=== PATIENT | female | born 1990 ===

== ENCOUNTER 2017-10-21 14:50 | Emergency (ER) | payer BC ==
--- NOTE | 2017-10-21 15:16 | UC ---
Back Pain HPI - History of Current Complaint Stated Complaint: LOWER BACK PAIN Time Seen by Provider: 10/21/17 15:15 Discharge - Discharge Plan Condition: Stable Disposition: HOME Referrals: No Primary Care Phys,NOPCP [Primary Care Provider] -
[2017-10-21 15:17] VITALS: BP 114/68
--- NOTE | 2017-10-21 15:44 | UC ---
Back Pain HPI - HPI Summary HPI Summary: Patient presents with non-traumatic left sided lower back pain x 2 days. She states the pain has been intermittent, and at times will radiate to the felt flank and side. She cannot states anything factors that make her back pain worse , and she states that Advil, and Tylenol make it a little better. She denies any fever, chills, abdominal pain , nausea, vomiting, diarrhea, abnormal vaginal discharge or bleeding. She denies any new activity, injury or trauma. Denies incontinence of bowel or bladder, or saddle paresthesia. - History of Current Complaint Chief Complaint: UCBackPain Stated Complaint: LOWER BACK PAIN Time Seen by Provider: 10/21/17 15:15 Hx Obtained From: Patient Hx Last Menstrual Period: Sep 19 ?: No Onset/Duration: Sudden Onset, Lasting Days Timing: Intermittent, Lasting Hours Severity Initially: Moderate Severity Currently: Moderate Back Pain: Is Discrete @ - left flank, lower back. Character: Sharp Aggravating Factor(s): Nothing Alleviating Factor(s): OTC Meds Associated Signs And Symptoms: Positive: Negative - Risk Factors AAA Risk Factors: Negative Cauda Equina Risk Factors: Negative Epidural Abscess Risk Factors: Negative - Allergies/Home Medications Allergies/Adverse Reactions: Allergies Allergy/AdvReac Type Severity Reaction Status Date / Time Minocycline Allergy Nausea Verified 10/21/17 15:19 Home Medications: Home Medications Keppra 250 1 tab PO DAILY 10/21/17 [History Confirmed 10/21/17] Keppra 500 1 tab PO BEDTIME 10/21/17 [History Confirmed 10/21/17] Pantoprazole Sodium 1 tab PO DAILY 10/21/17 [History Confirmed 10/21/17] Psyllium CARLIE* [Metamucil CARLIE*] 1 pkt PO DAILY 10/21/17 [History Confirmed ] PMH/Surg Hx/FS Hx/Imm Hx Previously Healthy: Yes Neurological History: Seizures - Surgical History Surgical History: Yes Surgery Procedure, Year, and Place: Sep 19, D&C - Family History Known Family History: Positive: None - Social History Occupation: Employed Full-time Lives: Alone Alcohol Use: None Substance Use Type: None Smoking Status (MU): Never Smoked Tobacco Review of Systems Constitutional: Negative Skin: Negative Eyes: Negative ENT: Negative Respiratory: Negative Cardiovascular: Negative Gastrointestinal: Negative Genitourinary: Negative Motor: Negative Neurovascular: Negative Musculoskeletal: Myalgia Neurological: Negative Psychological: Negative Is Patient Immunocompromised?: No All Other Systems Reviewed And Are Negative: Yes Physical Exam Triage Information Reviewed: Yes Appearance: Well-Appearing Vital Signs: Initial Vital Signs Temp 100.6 F 10/21/17 15:10 Pulse 126 10/21/17 15:10 Resp 15 10/21/17 15:10 BP 114/68 10/21/17 15:10 Pulse Ox 100 10/21/17 15:10 Vital Signs Reviewed: Yes Eye Exam: Normal ENT Exam: Normal Neck exam: Normal Neck: Positive: 1 Respiratory Exam: Normal Cardiovascular Exam: Normal Abdominal Exam: Normal Musculoskeletal: Positive: Other: - back inspecion, vertebra are in good aligment without step-offs or deformities, No areas of eccymosis, erythma, or edema. Palpation, no tenderness of midline on palpations, there was no CVAT, or reproducible pain of the munbar musculature on exam. ROM, intact in all planes. Patellar relfexes equal 1+, negative straight leg raise. gate, heel stike toe. no ataxia noted. Neurological Exam: Normal Psychological Exam: Normal Skin Exam: Normal Back Pain Course/Dx - Course Course Of Treatment: Patient presents with non-traumatic left sided lumbar back pain. On exam there was no CVAT, or reproducible pain. UA was obtained and was positive for infection, andhematuria. I discussed these findings with the patient and that I cannot be certain without the CT about a kidney stone, and I did recommend that she go to the ER for CT of abdomen and pelvis as this could not be obtained here today. The patient did have T-max of 100. P -126 which I also discussed with the patient and that these vital signs concerned me, it could be related to pain, kidney stone, UTI or early pylonephritis, and/or other medical diagnoses would need to be explored. She verbalized understanding of and was in agreement with discharge plan which I recommend she go to the ER. I did treat the UTI with Cipro 500 mg twice daily for 10 days, and the HCG urine was negative. - Differential Dx/Diagnosis Differential Diagnosis/HQI/PQRI: Other Provider Diagnoses: uti. flank pain. pylonephritis. hemturia Discharge - Discharge Plan Condition: Stable Disposition: HOME Prescriptions: Ciprofloxacin TAB* [Cipro 500 MG TAB*] 500 mg PO BID #20 tab Patient Education Materials: Urinary Tract Infection in Women (ED) Referrals: No Primary Care Phys,NOPCP [Primary Care Provider] - Additional Instructions: I recommend that you go to the ER for CT of abdomen and pelvis to make sure that you do not have a kidney stone.
== END 2017-10-21 16:25 | disposition home or self-care (01) ==
LOC: UCEAST 14:50
DX: N39.0 Urinary tract infection, site not specified (principal); N12 Tubulo-interstitial nephritis, not specified as acute or chronic; R31.9 Hematuria, unspecified; R56.9 Unspecified convulsions; Z79.899 Other long term (current) drug therapy; Z88.1 Allergy status to other antibiotic agents
CPT/HCPCS: 81003; 81025; 87086; 99212; G0463